=== PATIENT | male | born 1990 | race Caucasian/White ===

== ENCOUNTER 2020-12-08 10:25 | Emergency (ER) | payer OTHER ==
[~2020-12-08] VITALS: Ht 175.3 cm; Wt 111.6 kg
[2020-12-08] MEDS ORDERED: OXYC1TAB23 PO (10:32)
[2020-12-08] MEDS ORDERED: ZOFR4TAB16 PO (10:32)
[2020-12-08] MEDS ORDERED: NEOSPORIN TOP OINT 15GM TOP ONE (12:50)
[2020-12-08] MEDS ORDERED: PERCOCET 5MG/325MG TAB PO ONE (12:50)
[2020-12-08 13:17] VITALS: BP 139/97
== END 2020-12-08 13:33 | disposition home or self-care (01) ==
LOC: M ED 10:25
DX: Z47.89 Encounter for other orthopedic aftercare (principal); T81.9XXA Unspecified complication of procedure, initial encounter